=== PATIENT | female | born 1965 | race Asian ===

== ENCOUNTER 2016-07-19 15:43 | Emergency (ER) | payer MEDICAID, OTHER ==
[~2016-07-19] VITALS: Ht 160 cm; Wt 61.5 kg
[2016-07-19 15:45] VITALS: Ht 160 cm; Wt 61.5 kg
--- NOTE | 2016-07-19 16:27 | EN ---
Date/Time of Note Date/Time of Note DATE: 07/19/16 TIME: 16:26 ER Progress Note 51-year-old female who is here in flu tract. She has had cough and congestion for 1 month. She has tried several antibiotics still continues to have cough. She wants to be seen in the back to have an x-ray. REINA ARCEO PA-C July 19, 2016 16:27
--- NOTE | 2016-07-19 17:29 | ERD ---
ER Documentation Chief Complaint Date/Time DATE: 07/19/16 TIME: 17:28 Chief Complaint COUGH X 1 MONTH HPI 51-year-old female presents with a cough that has been on and off for approximately 1 month now. This patient was seen and treated several times in a facility with multiple antibiotics. He was given Augmentin on June 20 which she took for 5 days followed by a Z-Rafi on June 25, and prednisone for 5 days on July 03 and a week ago she was given Levaquin to be taken for 7 days. She states that she was seen by an outside clinic and she has not had a chest x- ray. She states initially it started with congestion as well as sore throat. She has had on and off fevers at nighttime. No hemoptysis, chest pain or shortness of breath. ROS All systems reviewed and are negative except as per history of present illness. Medications Home Meds Active Scripts Cetirizine Hcl* (Zyrtec*) 10 Mg Capsule, 10 MG PO DAILY, #30 TAB.CHEW Prov:LEOBARDO YE PA-C 07/19/16 Fluticasone Propionate* (Fluticasone Propionate* Nasal) 50 Mcg/[place] - 16 Gm [place].susp, 1 SPRAY NASAL BID, #1 BOTTLE TO EACH NOSTRIL Prov:LEOBARDO YE PA-C 07/19/16 Albuterol Sulfate* (Proair HFA*) 8.5 Gm Hfa.aer.ad, 2 PUFF INH Q4, #1 INHALER Prov:LEOBARDO YE PA-C 07/19/16 PMhx/Soc Medical and Surgical Hx: pt denies Medical Hx, pt denies Surgical Hx Hx Alcohol Use: No Hx Substance Use: No Hx Tobacco Use: No Smoking Status: Never smoker Physical Exam Vitals Vital Signs Date Time Temp Pulse Resp B/P Pulse Ox O2 Delivery O2 Flow Rate FiO2 07/19/16 15:45 98.3 89 20 147/70 95 Physical Exam General: Well-developed, well-nourished. The patient appears in no acute distress. HEENT: Head is normocephalic, atraumatic. No scleral icterus. Pupils are equal , round, and reactive. Oral mucous membranes are moist. No pharyngeal erythema. Neck: Supple. Nontender. Lungs: Clear to auscultation. Normal air movement. Heart: Regular rate and rhythm. S1 and S2 are normal. No murmurs, gallops, or rubs. Abdomen: Soft, nontender, nondistended. Bowel sounds are normoactive. Extremities: No clubbing or cyanosis. Normal pulses. Moving extremities x 4. No weakness. Neurologic: Alert and oriented 3. No focal deficits. Skin: Normal turgor. No rash or lesions. Results 24 hrs Chest X-ray 1V Interpreted by me as well as radiologist: Soft Tissue: No acute abnormalities Bones: No acute abnormalities Mediastinum/Cardiac Silhouette/Lungs: No acute abnormalities Procedures/MDM 51-year-old female comes in with cough for the past month, she has been treated multiple times with antibiotics. She was wondering she would be able to get a chest x-ray to evaluate for pneumonia, this seemed appropriate given her multiple antibiotic treatments and continuing cough. Chest x-ray was performed and it was negative. No evidence of infiltrate or pneumonia. Patient's differential diagnosis could be URI, bronchitis, pneumonia, postnasal drip, gastritis, GERD, and among others. Also no signs of CHF, pulmonary embolus, dissection, acute coronary syndrome. History of does not seem to be concerning for tuberculosis, also chest x-ray does not show evidence of active TB disease. She will be given Zyrtec and Flonase, as well as albuterol to be used as needed. Departure Diagnosis: Primary Impression: Cough Condition: Good LEOBARDO YE PA-C July 19, 2016 17:29
--- NOTE | 2016-07-19 17:36 | RADRPT ---
PROCEDURE: XR Chest. CLINICAL INDICATION: Cough 1 month TECHNIQUE: AP view of the chest was obtained. COMPARISON: None. FINDINGS: The cardiomediastinal silhouette is within normal limits. The lungs are clear. No pleural effusion or pneumothorax is seen. Visualized osseous structures are intact. IMPRESSION: No evidence of active cardiopulmonary disease. RPTAT: EE .Kristopher Islas MD, MD Date Time Electronically viewed and signed by .Kristopher Islas MD, on 07/19/2016 17:36 .O/
[2016-07-19] MEDS ORDERED: FLUT16SP17 NASAL (17:50)
[2016-07-19] MEDS ORDERED: ALBU8.5H3 INH (17:50)
[2016-07-19] MEDS ORDERED: CETI10CA PO (17:50)
== END 2016-07-19 18:11 | disposition home or self-care (01) ==
LOC: FTE 15:43
DX: R05 Cough (principal)
CPT/HCPCS: 71010; Z7502